=== PATIENT | female | born 1990 | race Caucasian/White ===

== ENCOUNTER 2016-06-05 04:20 | Emergency (ER) | payer OTHER ==
--- NOTE | ~2016-06-05 | CR63 ---
[facility] A Service of [facility] RADIOLOGY TEXT RESULTS PATIENT: CHAYA DUBOIS LOCATION: [facility] : [birth year] UNIT #: [id number] AGE: [address]: Bernardo Alvarez MD SEX: F ORDER DR: [id number] [facility] [address] [place], [place] [address] [id number] E MR#: [id number] Acc #: [id number] NAME: CHAYA DUBOSI : 1990 SEX: F STUDY DATE/TIME: 06/05/2016 3:49 UNIT: [facility] ROOM: STUDY DESCRIPTION: CR Chest 2 View Attending Physician: Bernardo Alvarez M.D. Ordering Physician: Bernardo Alvarez M.D. Primary Care Physician: Primary Care Physician No MEDICAL IMAGING REPORT This report is preliminary unless electronic signature is present EXAM Two-view chest, 06/05/2016 HISTORY 26-year-old female with cough and shortness of air for 2 days. COMPARISON None. FINDINGS 2 views of the chest demonstrate patchy infiltrate in the left midlung field. Findings most concerning for early pneumonia. Follow up to resolution recommended. Right lung clear. No pleural effusion or pneumothorax. Heart size and mediastinum within normal limits. Pulmonary vasculature unremarkable. IMPRESSION Patchy infiltrate in the left midlung field, most concerning for pneumonia. Recommend follow up to resolution. Dictated by... Michelet Morgan M.D. THIS IS AN ELECTRONICALLY VERIFIED REPORT Michelet Morgan M.D. at 06/06/2016 4:40 PM KARRI/jacob TD: 06/05/2016 17:02 JOB #: [id number] MEDICAL IMAGING REPORT Page 1 of 1 COPY
[2016-06-05 05:11] LABS: BASOPHIL% 0.3 % (0-2.5); EOSINOPHIL# 0.1 X10e3 (0-0.7); EOSINOPHIL% 0.8 % (0.0-7.0); HEMATOCRIT 41.3 % (35.0-45.0); HEMOGLOBIN 13.3 gm/dL (12.0-16.0); LYMPHOCYTE# 1.5 X10e3 (1.0-3.5); LYMPHOCYTE% 12.9 % (17.0-45.0); MEAN CELL VOLUME 94.1 FL (83-96); MEAN CORPUSCULAR HEMOGLOBIN 30.3 PG (28-34); MEAN CORPUSCULAR HGB CONC 32.2 g/dL (30-36); MEAN PLATELET VOLUME 9.6 FL (6.5-11.5); MONOCYTE# 0.9 X10e3 (0-1.0); MONOCYTE% 7.9 % (3.0-12.0); NEUTROPHIL% 78.1 % (40-75); PLATELET COUNT 195 X10e3 (140-420); RED BLOOD COUNT 4.39 X10e (3.90-5.30); WHITE BLOOD COUNT 11.6 X10e3 (4.0-10.5)
[2016-06-05 05:12] LABS: DIFF IND NO
[2016-06-05 05:23] LABS: INFLUENZA A NEG (NEG); INFLUENZA B NEG (NEG)
[2016-06-05 05:36] LABS: BUN/CREATININE RATIO 14.28; CALCIUM SERUM 8.5 mg/dL (8.4-10.2); CREATININE SERUM 0.7 mg/dL (0.6-1.4); GLOM FILT RATE Estimated 119.6 mL/min (>60); POTASSIUM 3.9 mmol/L (3.5-5.1)
== END 2016-06-05 06:25 | disposition home or self-care (01) ==
LOC: CED 04:20
PROVIDERS: Emergency Medicine
DX: J18.9 Pneumonia, unspecified organism (principal)
CPT/HCPCS: 36415; 71020; 80048; 83605; 84703; 85025; 87040; 87804; 96365; 96375; 99284; J1885; J1956

== ENCOUNTER 2016-09-27 20:26 | Emergency (ER) | payer OTHER ==
[~2016-09-27] VITALS: Ht 175.3 cm; Wt 141.1 kg
--- NOTE | ~2016-09-27 | CT2 ---
[facility] A Service of [facility] RADIOLOGY TEXT RESULTS PATIENT: CHAYA DUBOIS LOCATION: [facility] : 90 UNIT #: [id number] AGE: [address]: Benigno Vera MD SEX: F ORDER DR: [id number] [facility] [address] [place], [place] [address] [id number] E MR#: [id number] Acc #: [id number] NAME: CHAYA DUBOIS : 1990 SEX: F STUDY DATE/TIME: 09/28/2016 01:08 UNIT: [place] ROOM: STUDY DESCRIPTION: CT Abd and Pelv W Cont Attending Physician: Rex Vera M.D. Ordering Physician: Rex Vera M.D. Primary Care Physician: Primary Care Physician No MEDICAL IMAGING REPORT This report is preliminary unless electronic signature is present EXAM Abdomen and pelvis CT, 09/28 at 01:08 INDICATION Abdominal pain on the right side with nausea and vomiting that started today. Pain rates 10/10. TECHNIQUE Axial images were obtained through the abdomen and pelvis following oral and IV contrast administration. Multiplanar reformats were obtained. This CT exam was performed with one or more of the following radiation dose reduction techniques: automatic exposure control, adjustment of mA and/or kV according to patient size, and iterative reconstruction. COMPARISON No comparison. FINDINGS ABDOMEN: Lung bases are clear. Gallbladder unremarkable. No biliary obstruction. Solid organs are normal. No adenopathy or free fluid is seen. The GI tract is normal. PELVIS: The GI tract, including the appendix, is normal. Solid pelvic organs are normal. Urinary bladder is normal. No free fluid is seen. IMPRESSION Negative CT of the abdomen and pelvis. GI tract, including the appendix, is normal. Both kidneys enhance normally and are nonobstructed. Gallbladder has a normal CT appearance. Dictated by... Elvin Bowers Jr., M.D. [facility] A Service of [facility] RADIOLOGY TEXT RESULTS PATIENT: CHAYA DUBOIS LOCATION: [facility] : 90 UNIT #: [id number] AGE: [address]: Benigno Vera MD SEX: F ORDER DR: THIS IS AN ELECTRONICALLY VERIFIED REPORT Elvin Bowers Jr., M.D. at 09/28/2016 9:39 PM Juan Luis TD: 09/28/2016 09:44 JOB #: [id number] MEDICAL IMAGING REPORT Page 1 of 1 COPY
[2016-09-27 23:17] LABS: BASOPHIL# 0.1 X10e3 (0-0.3); DIFF IND NO; EOSINOPHIL# 0.6 X10e3 (0-0.7); EOSINOPHIL% 4.2 % (0.0-7.0); HEMATOCRIT 42.4 % (35.0-45.0); HEMOGLOBIN 13.8 gm/dL (12.0-16.0); LYMPHOCYTE# 3.2 X10e3 (1.0-3.5); LYMPHOCYTE% 23.6 % (17.0-45.0); MEAN CORPUSCULAR HEMOGLOBIN 29.5 PG (28-34); MEAN CORPUSCULAR HGB CONC 32.4 g/dL (30-36); MEAN PLATELET VOLUME 9.1 FL (6.5-11.5); MONOCYTE% 7.3 % (3.0-12.0); NEUTROPHIL# 8.6 X10e3 (1.5-7.1); NEUTROPHIL% 63.9 % (40-75); PLATELET COUNT 228 X10e3 (140-420); RED BLOOD COUNT 4.66 X10e (3.90-5.30); RED CELL DISTRIBUTION WIDTH 13.6 % (11.0-15.5); WHITE BLOOD COUNT 13.5 X10e3 (4.0-10.5)
[2016-09-27 23:51] LABS: BILIRUBIN, DIRECT 0.1 mg/dL (0.0-0.2); BILIRUBIN,INDIRECT 0.5 mg/dL (0.0-0.9); BILIRUBIN,TOTAL 0.6 mg/dL (0.2-2.0); BUN/CREATININE RATIO 17.14; CREATININE SERUM 0.7 mg/dL (0.6-1.4); GLOM FILT RATE Estimated 119.6 mL/min (>60); POTASSIUM 3.9 mmol/L (3.5-5.1); PROTEIN TOTAL SERUM 7.1 g/dL (6.0-8.3)
[2016-09-28 01:47] LABS: URINE SOURCE CLEAN CATCH
[2016-09-28 02:08] LABS: URINE APPEARANCE CLEAR; URINE BILIRUBIN NEG (NEG); URINE BLOOD NEG (NEG); URINE COLOR YELLOW; URINE GLUCOSE NEG (NEG); URINE KETONE NEG (NEG); URINE LEUKOCYTE ESTERASE NEG (NEG); URINE NITRATE NEG (NEG); URINE PROTEIN NEG (NEG); URINE SPECIFIC GRAVITY 1.013 (1.003-1.035); URINE UROBILINOGEN 0.2 MG/DL (NEG)
[2016-09-28 02:14] LABS: CULTURE INDICATED? NO
== END 2016-09-28 02:30 | disposition home or self-care (01) ==
LOC: CED 20:26
DX: R10.31 Right lower quadrant pain (principal); E28.2 Polycystic ovarian syndrome; E66.9 Obesity, unspecified
CPT/HCPCS: 36415; 74177; 80048; 80076; 81003; 83690; 84703; 85025; 96374; 96375; 99284; J2270; J2405; Q9967